=== PATIENT | female | born 1970 | race Two or more races ===

== ENCOUNTER 2025-01-24 05:30 | Day surgery (SDC) | payer MEDICAID, SELFPAY ==
--- NOTE | 2025-01-23 06:00 | EKG_ITS ---
[facility] Test Date: 2025-01-23 Pat Name: NUBIA WILLSON Department: Room: - Gender: Female Indirect Sales Representative: [place] : 1970 Requested By: Daniel Metzger Order Number: [id number] Reading MD: Daniel Metzger Measurements Intervals [place] Rate: 59 P: 53 MS: 129 QRS: 42 QRSD: 81 T: 41 QT: 394 QTc: 393 Interpretive Statements SINUS BRADYCARDIA No previous ECG available for comparison /[id number]
[2025-01-23 08:54] VITALS: BMI 27.5
[2025-01-23 09:51] LABS: Basophils # (Auto) 0.0 Thou/mm3 (0.0-0.2); Basophils % (Auto) 1 % (0-2.5); Eosinophils # (Auto) 0.1 Thou/mm3 (0.0-0.5); Eosinophils % (Auto) 3 % (0-10); Hematocrit 38.9 % (36.0-46.0); Hemoglobin 12.8 g/dL (12.0-16.0); Immature Granulocytes Auto 0.02 Thou/mm3 (0.00-0.00); Lymphocytes # (Auto) 1.2 Thou/mm3 (1.0-4.8); Lymphocytes % (Auto) 26 % (10-50); Mean Corpuscular HGB Conc 32.9 g/dl (31.0-37.0); Mean Corpuscular Hemoglobin 29.7 pg (25.0-35.0); Mean Corpuscular Volume 90 fL (80-100); Monocytes # (Auto) 0.3 Thou/mm3 (0.0-0.8); Monocytes % (Auto) 8 % (0-12); Neutrophils # (Auto) 2.9 Thou/mm3 (1.8-7.7); Neutrophils % (Auto) 63 % (37-80); Nucleated Red Blood Cell # 0.00 Thou/mm3 (0.00-0.00); Nucleated Red Blood Cell % 0 /100 WBC (0); Platelet Count 180 Thou/mm3 (140-440); RDW Standard Deviation 45.0 fL (36.4-46.3); Red Blood Count 4.31 Miln/mm3 (4.00-5.20); White Blood Count 4.5 Thou/mm3 (3.6-11.0)
[2025-01-23 09:58] LABS: HCG,Qualitative Serum Negative
[2025-01-23 10:01] LABS: Alanine Aminotransferase 16 U/L (10-49); Albumin, Serum 4.4 gm/dL (3.5-5.0); Albumin/Globulin Ratio 1.9 (1.2-2.2); Alkaline Phosphatase 83 U/L (46-116); Anion Gap 5 (7-16); Aspartate Amino Transferase 22 U/L (0-34); BUN/Creatinine Ratio 16 Ratio (12-20); Bilirubin,Total 0.5 mg/dL (0.3-1.2); Blood Urea Nitrogen 14 mg/dL (9-23); Calcium 8.9 mg/dL (8.3-10.6); Calcium (Corrected) 8.9 mg/dL (8.5-10.1); Carbon Dioxide 29.3 mMol/L (20.0-31.0); Chloride 108 mMol/L (98-107); Creatinine (Component) 0.9 mg/dL (0.6-1.3); Estimated Creatinine Clearance 67.2 mL/min (>60); Globulin 2.3 gm/dL (2.3-3.5); Glucose 117 mg/dL (74-106); Osmolality,Calculated 284 (275-295); Potassium 4.5 mMol/L (3.4-5.1); Sodium 142 mMol/L (136-145); Total Protein 6.7 gm/dL (5.7-8.2); eGFR > 60 See Note
[2025-01-23 10:43] LABS: Hepatitis A Antibody IgM Non Reactive (Non React); Hepatitis B Core Antibody IgM Non Reactive (Non React); Hepatitis B Surface Antigen Non Reactive (Non React); Hepatitis C Antibody Non Reactive (Non React)
[2025-01-23 11:30] LABS: HIV (1&2) Antibody Rapid Non-Reactive
[2025-01-24] VITALS (8 sets, daily range): BP systolic 119–157; BP diastolic 75–98; PULSE 63–85; RESP 13–16; TEMP 36.4–36.6; O2SAT 95–99; BMI 36.6
--- NOTE | 2025-01-24 07:43 | ESHP_ITS ---
Documentation for date of: 01/24/25 PHLEBOTOMIST SUPERVISOR/INSTRUCTOR - HPI History of Present Illness History of present illness: Ms. WILLSON is a 54 year old female para 5 admitted for a diagnostic hysteroscopy and biopsy. Patient has been following up for postmenopausal bleeding which she mentions had several episodes of the same. Ultrasound demonstrates 15 mm endometrial thickness. Patient was counseled that more than 4 mm endometrial thickness increases the risk of EIN and endometrial cancer and should be biopsied. Hysteroscopy being the gold standard of diagnosis patient was admitted for the same Meds Home Medications and Allergies Home Medications ?Medication ?Instructions ?Recorded ?Confirmed ?Type lisinopril 20 mg tablet 20 mg PO DAILY 01/23/2501/09 History Allergies Allergy/AdvReac Type Severity Reaction Status Date / Time No Known Allergies Allergy Unknown Verified 01/24/25 06:09 Exam - PHLEBOTOMIST SUPERVISOR/INSTRUCTOR Vital Signs Temp Pulse Resp BP Pulse Ox 97.7 F 63 16 157/95 H 96 01/24/25 06:09 01/24/25 06:09 01/24/25 06:09 01/24/25 06:09 01/24/25 06:09 Constitutional Constitutional: no acute distress Routine HEENT Exam Head: Present normocephalic and atraumatic Eye: Present EOMI and PERRL ENT: Present mucous membranes moist Routine Neck Exam Neck: Present supple and trachea midline Routine Respiratory Exam Respiratory: Present chest non-tender, lungs clear, normal breath sounds and no resp distress Routine Cardiovascular Exam Cardiovascular: Present RRR Routine Abdominal Exam Abdominal: Present soft and normoactive bowel sounds Routine Extremities Exam Extremities: Present full ROM Routine Skin Exam Skin: Present intact and dry Routine Neurological Exam Neurological: Present alert, oriented X3 and CN II-XII intact Routine Psychiatric Exam Psychiatric: Present normal affect and normal thought process PHLEBOTOMIST SUPERVISOR/INSTRUCTOR - Results Labs 01/23/25 09:12 01/23/25 09:12 Labs: Short CBC 01/23/25 Range/Units 09:12 WBC 4.5 (3.6-11.0) Thou/mm3 Hgb 12.8 (12.0-16.0) g/dL Hct 38.9 (36.0-46.0) % Plt Count 180 (140-440) Thou/mm3 BMP 01/23/25 09:12 Sodium 142 Potassium 4.5 Chloride 108 H Carbon Dioxide 29.3 BUN 14 Creatinine 0.9 Glucose 117 H Calcium 8.9 Liver Function 01/23/25 Range/Units 09:12 Total Bilirubin 0.5 (0.3-1.2) mg/dL AST 22 (0-34) U/L ALT 16 (10-49) U/L Alkaline Phosphatase 83 (46-116) U/L Albumin 4.4 (3.5-5.0) gm/dL Impressions Impression: 54-year-old para 5 admitted for diagnostic hysteroscopy and biopsy Postmenopausal bleeding, recurrent episodes Endometrial thickness 15 mm Assessment and Plan Additional Assessment & Plan Additional Plan: Hysteroscopy, diagnostic with biopsy Quality Measures Quality Measures VTE prophylaxis
--- NOTE | 2025-01-24 08:29 | SUR.PHASEI ---
0829 Patient arrived to recovery sleeping comfortably in [facility], able to arouse this drifts back to sleep, on oxygen 3L via nasal cannula, breathing unlabored, vital signs stable, denies pain, dressing intact to vaginal area; peripad, no bleeding noted, denies nausea, report received from Ashley CRAFT and Alex BAER
--- NOTE | 2025-01-24 09:27 | SUR.PHASEII ---
0927 Patient meets discharge criteria from recovery, awake and alert, breathing unlabored, vital signs stable, denies pain, dressing intact; no bleeding noted, eating ice chips; denies nausea, assisted with dressing into her clothing by her , discharge instructions given to patient and patients with the assistance of the telephone automation test developer Sagar ID#[id number], signed discharge instructions. Patient given all her belongings prior to discharge, transported via wheelchair and left in a private vehicle.
--- NOTE | 2025-01-24 09:37 | PD.GYNPROC ---
Operative Note - ENVIRONMENTAL PROTECTION GEOLOGIST Procedure Date of procedure: 01/24/25 Procedure Performed: Diagnostic hysteroscopy and polypectomy D&C Indication: Postmenopausal bleeding Pre-Op diagnosis: Same Post-Op diagnosis: Same Anesthesia type: General Procedure description: The patient was seen prior to surgery. The potential benefits and risks of the procedure, the likelihood of success, and the problems related to recuperation have been discussed with patient who agrees to proceed. The possible results of nontreatment and significant alternatives to the proposed procedure have also been explained, along with the risks and benefits of the alternatives. Risks and benefits of chosen anesthetic/sedation and possible use of blood/blood products (if appropriate) were discussed.The patient was identified as Yajaira Jerez and the procedure verified. A time out was held reviewing the patient identifiers, procedure planned and allergies. At this point the procedure was begun. The patient was positioned and prepped in routine fashion in the dorsal lithotomy position using yellowfin stirups. On examination under anesthesia,the uterus was retroverted to a normal size. Bladder was drained by catheter. A weighted speculum was then placed into the patient's posterior vagina. A zena was used to expose the anterior lip of the cervix which was then grasped by a single tooth tenaculum.The cervix was then very easily dilated to a size 6 Hegar dilator. The hysteroscope was then placed under direct visualization. Warm lactated Ringer's was used as a distention medium. The patient's uterus was found to have multiple endometrial polyps. Pictures were taken. Hysteroscope was removed and we proceeded with the myosure. Normal saline was used as the distension medium. The outflow channel was removed from the myosure camera and the myosure device was advanced into the cavity. Next the polyps was easily resected at its base using the myosure. Next the polyp was reached using the myosure, the cutting blade was approximated to the surface of the polyp, the cutting blade was activated and the resection of the polyp was then completed in multiple rotatory and withdrawal movements with the myosure. Remaining tissue were excised using the myosure device. The uterus appeared clear of any remaining excess tissue and the myosure camera and device were withdrawn from the cavity. There was minimal bleeding noted and tenaculum was removed. Hemostasis was acheived with a ringed forcep on anterior cervix. Estimated blood loss (ml): 5 Surgical staff Operation Date: 01/24/25 07:30 Case Staff PUBLIC RELATIONS: Jay Collazo Diagnosis Problem List Completed Was Problem List Reviewed/Reconciled?: Yes
== END 2025-01-24 09:27 | disposition home or self-care (01) ==
PROVIDERS: PCP Nurse Practitioner Family; Referring Provider Student in an Organized Health Care Education/Training Program; Visit Provider Student in an Organized Health Care Education/Training Program
PROC: 0U5B8ZZ Destruction of Endometrium, Via Natural or Artificial Opening Endoscopic (ICD-10-PCS; CPT 58563; principal; 2025-01-24 07:30)
DX: N84.0 Polyp of corpus uteri (principal); Z01.810 Encounter for preprocedural cardiovascular examination
CPT/HCPCS: 58558; 36415; 80053; 80074; 84703; 85025; 86703; 86850; 86900; 86901; 93005; A4217; A4649; J1885; J2250; J2704; J3010; J3490; J1596